=== PATIENT | female | born 1995 | race Caucasian/White ===

== ENCOUNTER → 2018-05-15 | Outpatient (REF) | payer OTHER ==
[2014-12-29 08:49] VITALS: BMI 34.4
[~2018-05-15] MED LIST: KET10 PO; LEVO1TAB33 PO; LEVO88TA45 PO; LOR5/325 PO
[2018-05-15 13:07] LABS: PLATELET COUNT, AUTOMATED 398 K/uL (150-450)
== END ==
PROVIDERS: ATTEND Nurse Practitioner Family
DX: R10.9 Unspecified abdominal pain (principal)
CPT/HCPCS: 82040; 82150; 82247; 82310; 82374; 82435; 82565; 82947; 83690; 84075; 84132; 84155; 84295; 84450; 84460; 84520; 85025

== ENCOUNTER → 2018-05-18 | Outpatient (CLI) | payer OTHER ==
[2014-12-29 08:49] VITALS: BMI 34.4
--- NOTE | 2018-05-18 14:45 | RADIOLOGY IMAGING REPORT ---
FACILITY: [facility] PATIENT NAME: Raine Brandt : 1995 MR: [id number] V: [id number] EXAM DATE: ORDERING PHYSICIAN: BRI DUPREE TECHNOLOGIST: Location: [facility] - [place] Patient: Raine Brandt : 1995 Visit/Account:[id number] Date of Sevice: 05/18/2018 GALLBLADDER HISTORY: Right upper quadrant pain, worse after eating COMPARISON: CT abdomen pelvis December 29, 2014 FINDINGS: Gallbladder: There multiple mobile gallstones. There is a positive Morales sign by technologist raz gomez. Gallbladder wall measures 2.9 mm in thickness Liver: Negative. Common duct: Normal, three mm diameter. Pancreas: Partially obscured by bowel, visualized aspects unremarkable. Right kidney: Right kidney appears unremarkable measuring 9 cm in length Upper abdominal aorta and IVC: Patent. Ascites: None visualized. IMPRESSION: Cholelithiasis with a positive Morales sign although no evidence of biliary ductal dilatation Pancreas partially obscured by bowel gas Report Dictated By: Sarai Daniel MD at 05/18/2018 2:40 PM Report E-Signed By: Sarai Daniel MD at 05/18/2018 2:42 PM WSN:[email or web address]
== END ==
LOC: US 13:13
PROVIDERS: ATTEND Nurse Practitioner Family
DX: K80.20 Calculus of gallbladder without cholecystitis without obstruction (principal); R19.8 Other specified symptoms and signs involving the digestive system and abdomen
CPT/HCPCS: 76705

== ENCOUNTER → 2018-05-20 | Emergency (ER) | payer OTHER ==
[2014-12-29 08:49] VITALS: Wt 90.3 kg
[~2018-05-20] MED LIST changes: +ACET/HYDROC 5/325MG TH ER ONLY 2 TAB/BOTTLE PO ONE; +APAP/HYDROCODONE 325/5 TAB PO ONE; +CIPROFLOXACIN 500 MG TAB PO ONE; +METRONIDAZOLE 500 MG TABLET PO ONE; +MORPHINE 4 MG/ML SDV IVP ONE; +NS(*) 0.9% 1000 ML BAG 1,000 ML IV ONE; +ONDA4TAB97 PO; +ONDANSETRON 4 MG ODT TH SL ONE; +ONDANSETRON 4 MG/2 ML VIAL IVP ONE; +TRAM-420 PO
--- NOTE | 2018-05-20 16:58 | ER Report ---
History and Physical Time Seen By MD: 16:57 HPI/ROS CHIEF COMPLAINT: Abdominal pain HISTORY OF PRESENT ILLNESS: This is a 22-year-old female presents to the emergency department for abdominal pain. Patient developed epigastric to right upper quadrant pain about 10 days ago after eating a hamburger and fries, did follow-up at urgent care 5 days after developing the pain, had an ultrasound 2 days ago, which was positive for cholelithiasis, positive Morales sign, no evidence of biliary ductal dilatation. She scheduled a follow-up appointment with Dr. Hawthorne for this coming Friday however the pain is too intense, patient is tearful decided to come in for reevaluation. She has nausea no vomiting. No dysuria. No rashes. No fevers or chills. REVIEW OF SYSTEMS: Constitutional: No fever, no chills. Eyes: No discharge. ENT: No sore throat. Cardiovascular: No chest pain, no palpitations. Respiratory: No cough, no shortness of breath. Gastrointestinal: As above. Genitourinary: No hematuria. Musculoskeletal: No back pain. Skin: No rashes. Neurological: No headache. Allergies: Coded Allergies: amoxicillin (Unverified Allergy, Unknown, 05/20/18) Home Meds Reported Medications Ondansetron Hcl (ZOFRAN) 4 Mg Tablet, 4 MG PO Q8H PRN for nausea, TAB 05/20/18 Levonorgestrel-Eth Estradiol (ORSYTHIA) 1 Each Tablet, 1 EACH PO DAILY 12/29/14 Levothyroxine Sodium (LEVOTHYROXINE SODIUM) 88 Mcg Tablet, 88 MCG PO QDAY 12/29/14 Discontinued Scripts Hydrocodone Bit/Acetaminophen (HYDROCODON-ACETAMINOPHEN 5-325) 1 Each Tablet, 1- 2 EACH PO Q4-6H PRN for PAIN, #30 TAB Prov:CONRADO MARSHALL MD 12/29/14 Ketorolac Tromethamine (KETOROLAC TROMETHAMINE) 10 Mg Tab, 10 MG PO Q6H, #16 TAB Prov:CONRADO MARSHALL MD 12/29/14 Past Medical/Surgical History Patient has a past medical and surgical history of hypothyroidism, tonsillectomy, septal repair, was contacted extraction. Hx Smoking: No Smoking Status: Never Smoker Exposure to Second Hand Smoke?: No Physical Exam General Appearance: The patient is alert, has no immediate need for airway protection and no signs of toxicity. Eyes: Pupils equal and round no pallor or injection. ENT, Mouth: Mucous membranes are moist. Respiratory: There are no retractions, lungs are clear to auscultation. Cardiovascular: Regular rate and rhythm. Gastrointestinal: Abdomen is round, soft, tenderness to the right upper quadrant, positive Morales's sign. Mild discomfort with percussion. Hypoactive bowel sounds. No abdominal bruits. No abdominal masses or pulsations. Neurological: Alert and oriented 4. Moving all extremities. Following all commands. No focal neuro deficits. Skin: Warm and dry, no rashes. Musculoskeletal: Neck is supple non tender. Extremities are nontender, nonswollen and have full range of motion. DIFFERENTIAL DIAGNOSIS: After history and physical exam differential diagnosis was considered for abdominal pain in a female including but not limited to ovarian cyst, pelvic inflammatory disease, ovarian torsion, cholecystitis, urinary tract infection, and appendicitis. Medical Decision Making Data Points Result Diagram: 05/20/18 1712 05/20/18 1712 Laboratory Hematology Test 05/20/18 17:12 05/20/18 18:15 Red Blood Count 5.40 M/uL (4.17-5.56) Mean Corpuscular Volume 85.6 fL (80.0-96.0) Mean Corpuscular Hemoglobin 28.3 pg (26.0-33.0) Mean Corpuscular Hemoglobin Concent 33.0 g/dL (32.0-36.0) Red Cell Distribution Width 12.8 % (11.5-14.5) Mean Platelet Volume 7.6 fL (7.2-11.1) Neutrophils (%) (Auto) 52.2 % (39.4-72.5) Lymphocytes (%) (Auto) 39.6 % (17.6-49.6) Monocytes (%) (Auto) 6.3 % (4.1-12.4) Eosinophils (%) (Auto) 1.2 % (0.4-6.7) Basophils (%) (Auto) 0.7 % (0.3-1.4) Nucleated RBC Relative Count (auto) 0.0 /100WBC Neutrophils # (Auto) 5.1 K/uL (2.0-7.4) Lymphocytes # (Auto) 3.9 K/uL (1.3-3.6) Monocytes # (Auto) 0.6 K/uL (0.3-1.0) Eosinophils # (Auto) 0.1 K/uL (0.0-0.5) Basophils # (Auto) 0.1 K/uL (0.0-0.1) Nucleated RBC Absolute Count (auto) 0.00 K/uL Sodium Level 143 mmol/L (137-145) Potassium Level 3.7 mmol/L (3.5-5.0) Chloride Level 106 mmol/L (98-107) Carbon Dioxide Level 23 mmol/L (22-31) Blood Urea Nitrogen 10 mg/dl (7-18) Creatinine 0.90 mg/dl (0.52-1.04) Glomerular Filtration Rate Calc > 60.0 Random Glucose 91 mg/dl (75-110) Calcium Level 9.8 mg/dl (8.4-10.2) Total Bilirubin 0.3 mg/dl (0.2-1.3) Aspartate Amino Transf (AST/SGOT) 29 U/L (0-35) Alanine Aminotransferase (ALT/SGPT) 38 U/L (0-56) Alkaline Phosphatase 96 U/L (0-126) Total Protein 9.1 g/dl (6.3-8.2) Albumin 5.3 g/dl (3.5-5.0) Urine Color Straw Urine Clarity Clear Urine pH 6.0 pH (4.8-9.5) Urine Specific [place] 1.003 Urine Protein Negative mg/dL (NEGATIVE) Urine Glucose (UA) Negative mg/dL (NEGATIVE) Urine Ketones Negative mg/dL (NEGATIVE) Urine Blood Small (NEGATIVE) Urine Nitrite Negative (NEGATIVE) Urine Bilirubin Negative (NEGATIVE) Urine Urobilinogen Negative mg/dL (0.2-1.9) Urine Leukocyte Esterase Negative (NEGATIVE) Urine RBC 1 /HPF (0-2/HPF) Urine WBC <1 /HPF (0-5/HPF) Urine Squamous Epithelial Cells Few /LPF (</=FEW) Urine Bacteria Few /HPF (NONE-FEW) Urine Mucus None /HPF (NONE-FEW) Urine HCG, Qualitative Negative (NEGATIVE) Chemistry Test 05/20/18 17:12 05/20/18 18:15 White Blood Count 9.8 k/uL (4.5-11.0) Red Blood Count 5.40 M/uL (4.17-5.56) Hemoglobin 15.3 g/dL (12.0-16.0) Hematocrit 46.2 % (34.0-47.0) Mean Corpuscular Volume 85.6 fL (80.0-96.0) Mean Corpuscular Hemoglobin 28.3 pg (26.0-33.0) Mean Corpuscular Hemoglobin Concent 33.0 g/dL (32.0-36.0) Red Cell Distribution Width 12.8 % (11.5-14.5) Platelet Count 421 K/uL (150-450) Mean Platelet Volume 7.6 fL (7.2-11.1) Neutrophils (%) (Auto) 52.2 % (39.4-72.5) Lymphocytes (%) (Auto) 39.6 % (17.6-49.6) Monocytes (%) (Auto) 6.3 % (4.1-12.4) Eosinophils (%) (Auto) 1.2 % (0.4-6.7) Basophils (%) (Auto) 0.7 % (0.3-1.4) Nucleated RBC Relative Count (auto) 0.0 /100WBC Neutrophils # (Auto) 5.1 K/uL (2.0-7.4) Lymphocytes # (Auto) 3.9 K/uL (1.3-3.6) Monocytes # (Auto) 0.6 K/uL (0.3-1.0) Eosinophils # (Auto) 0.1 K/uL (0.0-0.5) Basophils # (Auto) 0.1 K/uL (0.0-0.1) Nucleated RBC Absolute Count (auto) 0.00 K/uL Glomerular Filtration Rate Calc > 60.0 Calcium Level 9.8 mg/dl (8.4-10.2) Total Bilirubin 0.3 mg/dl (0.2-1.3) Aspartate Amino Transf (AST/SGOT) 29 U/L (0-35) Alanine Aminotransferase (ALT/SGPT) 38 U/L (0-56) Alkaline Phosphatase 96 U/L (0-126) Total Protein 9.1 g/dl (6.3-8.2) Albumin 5.3 g/dl (3.5-5.0) Urine Color Straw Urine Clarity Clear Urine pH 6.0 pH (4.8-9.5) Urine Specific [place] 1.003 Urine Protein Negative mg/dL (NEGATIVE) Urine Glucose (UA) Negative mg/dL (NEGATIVE) Urine Ketones Negative mg/dL (NEGATIVE) Urine Blood Small (NEGATIVE) Urine Nitrite Negative (NEGATIVE) Urine Bilirubin Negative (NEGATIVE) Urine Urobilinogen Negative mg/dL (0.2-1.9) Urine Leukocyte Esterase Negative (NEGATIVE) Urine RBC 1 /HPF (0-2/HPF) Urine WBC <1 /HPF (0-5/HPF) Urine Squamous Epithelial Cells Few /LPF (</=FEW) Urine Bacteria Few /HPF (NONE-FEW) Urine Mucus None /HPF (NONE-FEW) Urine HCG, Qualitative Negative (NEGATIVE) Urinalysis Test 05/20/18 18:15 Urine Color Straw Urine Clarity Clear Urine pH 6.0 pH (4.8-9.5) Urine Specific [place] 1.003 Urine Protein Negative mg/dL (NEGATIVE) Urine Glucose (UA) Negative mg/dL (NEGATIVE) Urine Ketones Negative mg/dL (NEGATIVE) Urine Blood Small (NEGATIVE) Urine Nitrite Negative (NEGATIVE) Urine Bilirubin Negative (NEGATIVE) Urine Urobilinogen Negative mg/dL (0.2-1.9) Urine Leukocyte Esterase Negative (NEGATIVE) Urine RBC 1 /HPF (0-2/HPF) Urine WBC <1 /HPF (0-5/HPF) Urine Squamous Epithelial Cells Few /LPF (</=FEW) Urine Bacteria Few /HPF (NONE-FEW) Urine Mucus None /HPF (NONE-FEW) Urine HCG, Qualitative Negative (NEGATIVE) EKG/Imaging Imaging Location: [facility] Patient: Raine Brandt : 1995 Visit/Account:[id number] Date of Sevice: 05/18/2018 GALLBLADDER HISTORY: Right upper quadrant pain, worse after eating COMPARISON: CT abdomen pelvis December 29, 2014 FINDINGS: Gallbladder: There multiple mobile gallstones. There is a positive Morales sign by technologist notation. Gallbladder wall measures 2.9 mm in thickness Liver: Negative. Common duct: Normal, three mm diameter. Pancreas: Partially obscured by bowel, visualized aspects unremarkable. Right kidney: Right kidney appears unremarkable measuring 9 cm in length Upper abdominal aorta and IVC: Patent. Ascites: None visualized. IMPRESSION: Cholelithiasis with a positive Morales sign although no evidence of biliary ductal dilatation Pancreas partially obscured by bowel gas Report Dictated By: Sarai Daniel MD at 05/18/2018 2:40 PM Report E-Signed By: Sarai Daniel MD at 05/18/2018 2:42 PM WSN:[email or web address] ED Course/Re-evaluation Clinical Indication for ER IV: Hydration, IV Access ED Course The patient was admitted to room. A history and physical were obtained. Differential diagnoses were considered. IV was started. A CBC, CMP and lipase were obtained. A 1 L normal saline bolus was given. Lab studies unremarkable, negative UA. Patient was given 4 mg IV morphine 2, she was given 1 [place] while in the emergency department, she was given a take-home pack for [place] and Zofran. I reviewed the laboratory results with the patient, as the ultrasound was done 2 days prior showing cholelithiasis, I discussed this with Dr. Chan no other conversation below. The patient and I discussed the options noted below, the patient has elected to take the medications, go home, nothing by mouth after midnight, contact Dr. Ovalle office at 8 AM for formal evaluation and likely surgery tomorrow. Patient does understand that she can come back to the emergency department any time should she have increased pain with the pain medications not able to manage. The patient's grandmother was here upon discharge, she did take the patient home. The patient had no other questions or concerns at this time and was discharged. Patient had significant relief of her symptoms. Once again the patient understands that she is to be nothing by mouth after midnight she is to take a hydrocodone and she understands its with minimal liquid. Dr. Chan was updated on the patient's decision to go home. 05/20/2018 6:24:26 pm I did speak with Dr. Chan regarding the patient's case, we discussed admitting the patient to the hospital where the current bed status at the hospital is at maximum capacity, therefore we discussed keeping the patient in the emergency department, transferring her or sending her home with antibiotics on board, pain medication and then contacting Dr. Ovalle office in the morning she has had normal blood work today. Decision to Disposition Date: May 20, 2018 Decision to Disposition Time: 18:45 Depart Departure Impression: Primary Impression: Cholelithiasis Condition: Improved Disposition: HOME OR SELF-CARE Referrals: SHAHLA CHAN 1 Day Patient Instructions: Abdominal Pain (ED), Cholecystitis (ED) Additional Instructions: As we've discussed, nothing by mouth after midnight, if you need to take additional pain medications, do so with minimal liquid, I would anticipate surgical removal of your gallbladder tomorrow. You can skip your Synthroid in the morning. Please call Dr. Chan's office, at 8 AM, he is expecting your phone call. If you need to return to the emergency department for additional pain relief you can do so at any time. Problem Qualifiers Primary Impression: Cholelithiasis Cholelithiasis location: gallbladder Cholecystitis presence: without cholecystitis Biliary obstruction: without biliary obstruction Qualified Codes: K80.20 - Calculus of gallbladder without cholecystitis without obstruction JULIETTE ROSARIO [employer] ENGINEER-BC May 20, 2018 16:58
[2018-05-20 17:21] LABS: PLATELET COUNT, AUTOMATED 421 K/uL (150-450)
== END ==
LOC: ER 16:59
DX: K80.20 Calculus of gallbladder without cholecystitis without obstruction (principal)
CPT/HCPCS: 81001; 81025; 85025; 96361; 96374; 96375; 96376; 99284; J2270; J2405; J7030; S0119; 82040; 82247; 82310; 82374; 82435; 82565; 82947; 84075; 84132; 84155; 84295; 84450; 84460; 84520

== ENCOUNTER 2018-05-21 14:00 | Day surgery (SDC) | payer OTHER ==
[2014-12-29 08:49] VITALS: Ht 157.5 cm; Wt 89.4 kg
[~2018-05-21] VITALS: Ht 157.5 cm; Wt 89.4 kg
[2018-05-21 14:00] VITALS: BP 133/74
[~2018-05-21 14:00] MED LIST changes: -ACET/HYDROC 5/325MG TH ER ONLY 2 TAB/BOTTLE PO ONE; -APAP/HYDROCODONE 325/5 TAB PO ONE; +BUPIVACAINE/EPI 0.5% 50ML VIAL INFIL ONE; -CIPROFLOXACIN 500 MG TAB PO ONE; +IOPAMIDOL 61% 75 ML INFUS BTL 0 ML ONE; -METRONIDAZOLE 500 MG TABLET PO ONE; -MORPHINE 4 MG/ML SDV IVP ONE; -NS(*) 0.9% 1000 ML BAG 1,000 ML IV ONE; -ONDANSETRON 4 MG ODT TH SL ONE; -ONDANSETRON 4 MG/2 ML VIAL IVP ONE; -TRAM-420 PO
[2018-05-21] MEDS ORDERED: BUPIVACAINE/EPI 0.5% 50ML VIAL INFIL ONE (14:28)
[2018-05-21] MEDS ORDERED: NORMOSOL R SOLN(*) 1000 ML BAG 1,000 ML IV PRN (14:30)
[2018-05-21] MEDS ORDERED: LEVOFLOXACIN/D5W 750 MG/150 ML 150 ML IVPB ONE (14:30)
[2018-05-21] MEDS ORDERED: LIDOCAINE/SOD BICARB 8.4% SYR ID ONE (14:30)
[2018-05-21] MEDS: metroNIDAZOLE* 500MG/100ML BAG 100 ML IVPB ONE ×2 (14:30→14:39)
[2018-05-21] MEDS ORDERED: MIDAZOLAM 2 MG/2 ML VIAL IVP PRN (14:30)
[2018-05-21] MEDS ORDERED: FAMOTIDINE 20 MG TAB PO ONE (14:30)
[2018-05-21] MEDS ORDERED: CLINDAMYCIN(*) 600 MG/NS 50 ML 50 ML IVPB ONE (15:05)
[2018-05-21] MEDS ORDERED: diphenhydrAMINE 50 MG/ML VIAL IVP ONE (15:05)
[2018-05-21] MEDS ORDERED: LIDOCAINE MPF 1% 5 ML VIAL ONE (15:17)
[2018-05-21] MEDS ORDERED: ONDANSETRON 4 MG/2 ML VIAL ONE ×2 (15:17→18:20)
[2018-05-21] MEDS ORDERED: PROPOFOL EMUL(*) 10MG/ML 20 ML 20 ML ONE (15:17)
[2018-05-21] MEDS ORDERED: fentaNYL CITR 250 MCG/5 ML AMP ONE (15:17)
[2018-05-21] MEDS ORDERED: DEXAMETHASONE SOD 4 MG/ML VIAL ONE (15:17)
[2018-05-21] MEDS ORDERED: SUGAMMADEX SOD 200 MG/2 ML SDV ONE (15:19)
[2018-05-21] MEDS ORDERED: KETOROLAC 30 MG/ML VIAL ONE (16:31)
[2018-05-21] MEDS ORDERED: TRAM-420 PO (16:52)
--- NOTE | 2018-05-21 16:54 | Short(Outpt) Discharge Summary ---
Discharge Summary Reason for Hosp/Final Diag: (1) Cholelithiasis Status: Acute Hospital Course & Plan: pt presented for lap finesse. she tolerated the procedure well and there were no complications. she will be discharged home when criteria met. Departure Discharge to: Home Discharge Instructions Home Meds Active Scripts Tramadol Hcl (TRAMADOL HCL) 50 Mg Tablet, 50 MG PO Q4H PRN for PAIN, #30 TAB Prov:SHAHLA BRADFORD 05/21/18 Reported Medications Ondansetron Hcl (ZOFRAN) 4 Mg Tablet, 4 MG PO Q8H PRN for nausea, TAB 05/20/18 Levonorgestrel-Eth Estradiol (ORSYTHIA) 1 Each Tablet, 1 EACH PO DAILY 12/29/14 Levothyroxine Sodium (LEVOTHYROXINE SODIUM) 88 Mcg Tablet, 88 MCG PO QDAY 12/29/14 Discontinued Scripts Hydrocodone Bit/Acetaminophen (HYDROCODON-ACETAMINOPHEN 5-325) 1 Each Tablet, 1- 2 EACH PO Q4-6H PRN for PAIN, #30 TAB Prov:CONRADO MARSHLAL MD 12/29/14 Ketorolac Tromethamine (KETOROLAC TROMETHAMINE) 10 Mg Tab, 10 MG PO Q6H, #16 TAB Prov:CONRADO MARSHALL MD 12/29/14 Diet: Regular Activity: No Heavy Lifting Special Instructions: no lifting more than 15 lbs for 3 wks ok to shower tomorrow no fatty/greasy food for 3 wks take stool softener while taking pain meds follow up with dr. kian bradford in 2 wks ([phone]) SHAHLA BRADFORD May 21, 2018 16:54
--- NOTE | 2018-05-21 16:59 | Post Operative Progress Note ---
Post Operative Progress Note Date: May 21, 2018 Time: 16:55 Surgeon: dr. hill bradford #[id number] Auto Body Service Mechanic: none Anesthesia: gen, local dr. modi Pre-Op Diagnosis: symptomatic cholelithiasis Post-Op Diagnosis: same Findings: cholelithiasis Procedure(s): lap finesse Specimen Removed:(May be N/A): gb Complications: none Fluids: iv crystalloid Estimated Blood Loss: minimal Date OP Note Dictated: May 21, 2018 Time OP Note Dictated: 16:56 SHAHLA BRADFORD May 21, 2018 16:59
[2018-05-21] MEDS ORDERED: fentaNYL CITR 100 MCG/2 ML AMP ONE ×2 (17:01→18:17)
[2018-05-21] MEDS ORDERED: traMADol 50 MG TAB PO ONE (17:50)
[2018-05-21 18:00] VITALS: BP 109/67
--- NOTE | 2018-05-21 18:19 | NUR ---
REPORTS STABBING SPASM LIKE PAINS TO ABD. ESPECIALLY UMBELICUS. REMEDICATED C FENTANYL 50 MCG IV. PAIN 09/30. ICE REMAINS OVER OPSITES. 1821 REPORTS NAUSEA. MEDICATED C ARLENE.
[2018-05-21 18:30] VITALS: BP 111/58
[2018-05-21 18:45] VITALS: BP 121/68
[2018-05-21 18:56] VITALS: BP 107/72
--- NOTE | 2018-05-21 18:56 | OPERATIVE REPORT 1 ---
EVENT DATE: May 21, 2018 SURGEON: Kris hCan MD ANESTHESIOLOGIST: Shon Montague MD ANESTHESIA: General and local. PREOPERATIVE DIAGNOSIS Symptomatic cholelithiasis. POSTOPERATIVE DIAGNOSIS Symptomatic cholelithiasis. PROCEDURE PERFORMED Laparoscopic cholecystectomy. FLUIDS IV crystalloid. ESTIMATED BLOOD LOSS Minimal. SPECIMENS Gallbladder. COMPLICATIONS None. INDICATIONS This is a 22-year-old female with right upper quadrant pain for approximately 11 days. Imaging shows gallstones. Risks and benefits of the procedure were explained, and consent was signed. DESCRIPTION OF PROCEDURE Patient was taken to the operating room and placed in the supine position. General anesthesia was administered per the anesthesia team. Patient was prepped and draped in the normal sterile fashion. Local analgesia was injected in the dermis above the umbilicus, and a 5 mm vertical incision was made. The umbilical stump was grasped and elevated. I attempted to insert the Veress needle, but was unsuccessful, and therefore, I used Optiview technique to easily enter the abdomen at the right subcostal margin. Pneumoperitoneum was achieved under direct vision. I then placed a 5 mm supraumbilical port. After injecting local analgesia and under direct vision, I placed a 12 mm subxiphoid port and another 5 mm right-sided port. I inspected the abdomen. There was no injury upon entry. The fundus of the gallbladder was grasped and retracted superiorly and laterally. The infundibulum was grasped and retracted. Electrocautery was used to free the cystic duct and the cystic artery of surrounding tissue. Both structures were seen going directly to the gallbladder. Three clips were placed on the cystic duct, and it was divided sharply between the distal two clips. Three clips had been placed on the cystic artery, and it was divided between the distal two clips. Gallbladder was taken off the liver bed with electrocautery. There was mild inflammation. It was removed with an Endo Catch bag through the subxiphoid port site. The right upper quadrant was irrigated and suctioned dry, irrigant returning clear. Hemostasis was assured. Clips were confirmed to be in place. Fascial closure device with an 0 Vicryl stitch was used to close the fascia of the subxiphoid port site. The two right upper quadrant ports were removed under direct vision. Hemostasis was assured. Pneumoperitoneum was relieved. Final port was removed. All skin incisions were closed with 4-0 Monocryl subcuticular stitches. More local analgesia was injected. Appropriate dressings were applied. Patient tolerated the procedure well. There were no complications. LUKAS
[2018-05-21 18:58] VITALS: BP 109/72
== END 2018-05-21 18:00 | disposition home or self-care (01) ==
LOC: OR 14:00
PROVIDERS: ATTEND Surgery
DX: K80.20 Calculus of gallbladder without cholecystitis without obstruction (principal)
CPT/HCPCS: 47562; 88304; J1100; J1200; J1885; J1956; J2001; J2405; J2704; J3010; J3490; Q9967